=== PATIENT | female | born 1935 | race Caucasian/White ===

== ENCOUNTER 2017-10-22 11:46 | Outpatient (CLI) | payer MEDICARE, BC | END 2017-10-22 11:47 | disposition home or self-care (01) | LOC: BICMAMMO 11:46 | PROVIDERS: ATTEND Internal Medicine | DX: Z12.31 Encounter for screening mammogram for malignant neoplasm of breast (principal) | CPT/HCPCS: 77063; 77067 ==

== ENCOUNTER 2018-03-06 09:24 | Emergency (ER) | payer MEDICARE, BC ==
--- NOTE | 2018-03-06 10:09 | RAD ---
CHEST 2 VIEWS: Date: 03/06/18 HISTORY: Cough. Patient found unresponsive by son. COMPARISON: 01/14/17 chest x-ray. FINDINGS: Heart size within normal limits. There are atherosclerotic changes of the aorta. Lungs are clear of i nfiltrates. There is a granuloma in the right base. Arthritic changes of the spine are seen. IMPRESSION: 1. No active intrathoracic disease. 2. Incidental note is made of mitral annulus calcification. POS: [facility]
[2018-03-06 10:11] LABS: INR-International Normal Ratio 1.5; Prothrombin Time 18.4 SEC (12.0-14.7)
[2018-03-06 10:12] LABS: PTT 40.8 SEC (22.9-36.1)
[2018-03-06 10:14] LABS: ALT (SGPT) 20 U/L (8-55); AST (SGOT) 17 U/L (5-34); Albumin 4.1 g/dL (3.4-4.8); Alkaline Phosphatase 124 U/L (40-150); Anion Gap 15 mmol/L (10-20); BUN (Urea Nitrogen) 20 mg/dL (9.8-20.1); Bilirubin, Total 0.8 mg/dL (0.2-1.2); CK (CPK) 78 U/L (29-168); Calc. Creatinine Clearance 0 mL/min (70-130); Calcium 9.5 mg/dL (7.8-10.44); Carbon Dioxide 24 mmol/L (23-31); Chloride 103 mmol/L (98-107); Estimated GFR-MDRD 57; Glucose 140 mg/dL (83-110); Potassium 4.1 mmol/L (3.5-5.1); Protein, Total 7.1 g/dL (6.0-8.3); Sodium 138 mmol/L (136-145)
[2018-03-06 10:18] LABS: Troponin I Less than 0.010 ng/mL (< 0.028)
[2018-03-06 10:24] LABS: #Eosinphils 0.3 thou/uL (0.0-0.7); #Monocytes 0.7 thou/uL (0.11-0.59); #Neutrophils 3.6 thou/uL (1.40-6.50); %Basophils 0.8 % (0.0-1.0); %Eosinophils 5.2 % (0.0-10.0); %Lymphocytes 17.4 % (21.0-51.0); %Monocytes 12.8 % (0.0-10.0); %Neutrophils 63.9 % (42.0-75.0); Hemoglobin 13.1 g/dL (12.0-16.0); Mean Corpuscular Hemoglobin 28.5 pg (27.0-31.0); Mean Corpuscular Volume 83.8 fL (78.0-98.0); Mean Platelet Volume 8.1 fL (7.4-10.4); Platelet Count 112 thou/uL (130-400); RBC Distribution Width 13.7 % (11.5-14.5); Red Blood Cell (RBC) Count 4.61 mill/uL (4.20-5.40); White Blood Cell (WBC) Count 5.7 thou/uL (4.8-10.8)
== END 2018-03-06 11:54 | disposition home or self-care (01) ==
LOC: ERS 09:24
DX: I44.0 Atrioventricular block, first degree (principal); I10 Essential (primary) hypertension; R55 Syncope and collapse; I45.81 Long QT syndrome; I48.91 Unspecified atrial fibrillation; E11.9 Type 2 diabetes mellitus without complications; E03.9 Hypothyroidism, unspecified; E78.5 Hyperlipidemia, unspecified; Z79.899 Other long term (current) drug therapy; Z79.82 Long term (current) use of aspirin
CPT/HCPCS: 36415; 71046; 80053; 82553; 83605; 84484; 85025; 85610; 85730; 87040; 93005; 94760

== ENCOUNTER 2018-11-04 14:30 | Outpatient (CLI) | payer MEDICARE, BC ==
--- NOTE | 2018-11-04 15:54 | MMO ---
Bilateral MAMMO Bilat Screen [facility]. CLINICAL HISTORY: Patient is 83 years old and is seen for screening. The patient has no family history of breast cancer. The patient has a history of thyroid cancer in 1994. The patient has a history of right Stereotatic Biopsy in Nov, 2006 - benign. VIEWS: The views performed were: bilateral craniocaudal with tomosynthesis and bilateral mediolateral oblique with tomosynthesis. FILMS COMPARED: The present examination has been compared to prior imaging studies performed at [facility] on 05/07/2001, 11/05/2001, 05/08/2002, 11/11/2002, 05/19/2003, 01/12/2004, 06/01/2004, 06/13/2005, 06/18/2006, 06/27/2006, 12/25/2006, 07/03/2008, 07/05/2009, 07/06/2010, 07/10/2011, 07/11/2012, 07/14/2013, 08/11/2014, 09/01/2015, 09/04/2016 and 10/22/2017. MAMMOGRAM FINDINGS: There are stable benign appearing calcifications seen in both breasts. There are also vascular calcifications. There are no suspicious masses, suspicious calcifications, or new areas of architectural distortion. IMPRESSION: THERE IS NO MAMMOGRAPHIC EVIDENCE OF MALIGNANCY. A ROUTINE FOLLOW-UP MAMMOGRAM IN 1 YEAR IS RECOMMENDED. THE RESULTS OF THIS EXAM WERE SENT TO THE PATIENT. ACR BI-RADS Category 2 - Benign finding MAMMOGRAPHY NOTE: 1. A negative mammogram report should not delay a biopsy if a dominant of clinically suspicious mass is present. 2. Approximately 10% to 15% of breast cancers are not detected by mammography. 3. Adenosis and dense breasts may obscure an underlying neoplasm.
== END 2018-11-04 14:31 | disposition home or self-care (01) ==
LOC: BICMAMMO 14:30
PROVIDERS: ATTEND Internal Medicine
DX: Z12.31 Encounter for screening mammogram for malignant neoplasm of breast (principal); Z85.850 Personal history of malignant neoplasm of thyroid
CPT/HCPCS: 77063; 77067

== ENCOUNTER 2022-01-05 21:49 | Inpatient (IN) | payer MEDICARE, BC ==
[2022-01-05 23:04] VITALS: BMI 18.9
[2022-01-06 00:36] LABS: Troponin I 0.022 ng/mL (< 0.028)
[2022-01-06 05:16] LABS: #Eosinphils 0.1 thou/uL (0.0-0.7); #Lymphocytes 1.1 thou/uL (1.20-3.40); #Neutrophils 6.4 thou/uL (1.40-6.50); %Basophils 0.2 % (0.0-1.0); %Eosinophils 0.8 % (0.0-10.0); %Lymphocytes 12.5 % (21.0-51.0); %Monocytes 11.6 % (0.0-10.0); %Neutrophils 74.9 % (42.0-75.0); Hemoglobin 11.8 g/dL (12.0-16.0); Mean Corpuscular HGB CONC 32.1 g/dL (32.0-36.0); Mean Corpuscular Hemoglobin 27.6 pg (27.0-31.0); Mean Platelet Volume 8.9 fL (7.4-10.4); Platelet Count 123 thou/uL (130-400); RBC Distribution Width 14.8 % (11.5-14.5); Red Blood Cell (RBC) Count 4.26 mill/uL (4.20-5.40); White Blood Cell (WBC) Count 8.6 thou/uL (4.8-10.8)
[2022-01-06] MEDS ORDERED: Ondansetron PF 4 MG/2 ML Vial IVP PRN (05:36)
[2022-01-06] MEDS ORDERED: Ondansetron ODT 4 MG TAB PO PRN (05:36)
[2022-01-06] MEDS ORDERED: Acetaminophen 650 MG Suppository PR PRN (05:36)
[2022-01-06] MEDS ORDERED: Acetaminophen 325 MG TAB PO PRN (05:36)
[2022-01-06 05:37] LABS: Anion Gap 12 mmol/L (10-20); BUN (Urea Nitrogen) 38 mg/dL (9.8-20.1); Calc. Creatinine Clearance 50 mL/min (70-130); Calcium 9.3 mg/dL (7.8-10.44); Carbon Dioxide 21 mmol/L (23-31); Chloride 105 mmol/L (98-107); Glucose 144 mg/dL (83-110); Potassium 4.5 mmol/L (3.5-5.1); Sodium 133 mmol/L (136-145)
[2022-01-06 05:42] LABS: Troponin I 0.018 ng/mL (< 0.028)
[2022-01-06] MEDS ORDERED: HumaLOG 300 UNITS/3 ML VIAL SC PRN ×2 (06:18)
[2022-01-06] MEDS ORDERED: Dextrose 5% in Water 1,000 ML IV PRN (06:18)
[2022-01-06] MEDS ORDERED: Dextrose 50% Abboject 50 ML SYRINGE SLOW IVP PRN (06:18)
[2022-01-06] MEDS ORDERED: Furosemide 40 MG/4 ML VIAL SLOW IVP SCH (06:30)
[2022-01-06] MEDS ORDERED: Electrolyte Replacement Protocol 1 EACH FS SCH (10:15)
[2022-01-06] MEDS ORDERED: Sotalol HCl 80 MG TAB PO SCH ×3 (11:00→21:00)
[2022-01-06 11:03] LABS: Magnesium 2.1 mg/dL (1.6-2.6); Phosphorus 3.4 mg/dL (2.3-4.7)
[2022-01-06 12:18] LABS: Free T4 (Free Thyroxine) 1.16 ng/dL (0.70-1.48)
[2022-01-06 15:56] VITALS: BP 142/66; TEMP 97.9
[2022-01-06] MEDS ORDERED: Apixaban 2.5 MG TAB PO SCH (17:30)
[2022-01-07] MEDS ORDERED: Furosemide 40 MG TAB PO SCH (07:30)
== END 2022-01-06 18:36 | DRG 291 ==
LOC: 2SW 21:49 → OBSVTOIN 01-06 10:02
PROVIDERS: ADMIT Internal Medicine; ATTEND Internal Medicine
DX: I13.0 Hypertensive heart and chronic kidney disease with heart failure and stage 1 through stage 4 chronic kidney disease, or unspecified chronic kidney disease (principal); I50.33 Acute on chronic diastolic (congestive) heart failure; Z20.822 Contact with and (suspected) exposure to COVID-19; N18.9 Chronic kidney disease, unspecified; E11.22 Type 2 diabetes mellitus with diabetic chronic kidney disease; I48.91 Unspecified atrial fibrillation; E78.5 Hyperlipidemia, unspecified; M48.00 Spinal stenosis, site unspecified; Z88.0 Allergy status to penicillin; Z95.0 Presence of cardiac pacemaker; Z79.01 Long term (current) use of anticoagulants; Z88.2 Allergy status to sulfonamides; Z91.040 Latex allergy status; Z79.899 Other long term (current) drug therapy
CPT/HCPCS: 36415; 36416; 80048; 83735; 84100; 84439; 84481; 84484; 85025; J1940; U0003; U0005